=== PATIENT | female | born 1990 | race American Indian/Alaskan Native ===

== ENCOUNTER 2020-06-20 11:00 | Outpatient (CLI) | payer MEDICAID | END 2020-06-20 11:01 | disposition home or self-care (01) | LOC: SLR 11:00 | PROVIDERS: ATTEND Otolaryngology | DX: G47.33 Obstructive sleep apnea (adult) (pediatric) (principal); R40.0 Somnolence; E66.9 Obesity, unspecified | CPT/HCPCS: G0399 ==

== ENCOUNTER 2020-10-15 06:35 | Day surgery (SDC) | payer MEDICAID ==
[2020-10-15] MEDS ORDERED: SODIUM CHLORIDE 0.9% 1000 ML 1,000 ML IV SCH (07:00)
--- NOTE | 2020-10-15 07:32 | Anesthesia Consultation ---
Anesthesia Consult and Med Hx Date of service: 10/15/20 - Airway Anesthetic Teeth Evaluation: Good ROM Head & Neck: Adequate Mental/Hyoid Distance: Adequate Mallampati Class: Class III Intubation Access Assessment: Possibly Difficult - Pre-Operative Health Status ASA Pre-Surgery Classification: ASA3 Proposed Anesthetic Plan: MAC - Pulmonary Hx Smoking: Yes (cigars) Hx Sleep Apnea: Yes (uses CPAP) - Cardiovascular System Hx Hypertension: Yes (no meds) - Central Nervous System Hx Psychiatric Problems: Yes (anxiety) - Gastrointestinal Hx Gastroesophageal Reflux Disease: Yes - Endocrine Hx Hypothyroidism: Yes (no meds) - Other Systems Hx Substance Use: Yes (marijuana) Hx Obesity: Yes (BMI 63.9)
--- NOTE | 2020-10-15 07:33 | Anesthesia Day of Surgery ---
Anesthesia Day of Surgery - Day of Surgery Patient Examined: Yes Patient H&P Reviewed: Yes Patient is NPO: Yes
--- NOTE | 2020-10-15 08:29 | Discharge Summary ---
Providers - Providers Date of Admission: 10/15/2020 Date of discharge: 10/15/20 Attending physician: GINNA MERCADO MD [facility] ROSALIND Hospitalization Reason for admission: EGD as part of pre-op planning for bariatric surgery Condition: Good Procedures: EGD Hospital course: Pt presented for a pre-op EGD as part of planning for up coming bariatric surgery. Procedure was uneventful and pt recovered well and was discharged to home. Disposition: DC-01 TO HOME OR SELFCARE Core Measure Documentation - Palliative Care Palliative Care/ Comfort Measures: Not Applicable - Core Measures Any of the following diagnoses?: none Exam - Physical Exam Narrative exam: unchanged from pre-op - Constitutional Vitals: Temp Pulse Resp BP Pulse Ox 97.7 F 68 12 136/89 98 10/15/20 08:07 10/15/20 08:07 10/15/20 08:07 10/15/20 08:07 10/15/20 08:07 Plan Activity: no restrictions Diet: low carbohydrate Follow up with: JOSÉ ANTONIO CARRILLO MD [Primary Care Provider] - 7 Days
--- NOTE | 2020-10-15 08:30 | Operative Report ---
Operative Report Operative Report: DATE: 10/15/2020 SURGERY: Upper endoscopy. SURGEON: Tacho Mart M.D. PROCEDURE: EGD with biopsy PRE OP DX: morbid obesity, GERD POST OP DX: morbid obesity, GERD TYPE OF ANESTHESIA: MAC. ESTIMATED BLOOD LOSS: None. COMPLICATIONS: None. SPECIMENS REMOVED: antral biopsy FINDINGS: 1. Small hiatal hernia. 2. antral gastritis 2. Otherwise, normal esophagus and first portion of duodenum. INDICATIONS:INDICATION FOR PROCEDURE: Patient is a 29-year-old female with a long history of morbid obesity. She is planned to have a weight loss procedure and is here for preoperative planning EGD. PROCEDURE DETAILS: After consent was reviewed, patient was taken back to the operating room where patient was placed in the left lateral decubitus position and a bite block was placed in the mouth. After a time-out was called, MAC anesthesia was initiated. I then passed the endoscope into her oropharynx, into her esophagus, visualized the entire esophagus, which was all within normal limits. Z-line was noted to about 40cm from incisors. I then visualized the stomach and the first portion of the duodenum and there were no abnormalities I could clearly visualize. A cold forceps biopsy of the antrum was taken and will be sent to pathology to evaluate for H.pylori. I then retroflexed the scope in the stomach and visualized the hiatus and I could see a small hiatal hernia. I then desufflated the stomach and removed the endoscope. Patient tolerated procedure well and was transferred to recovery room in good and stable condition.
[2020-10-15] MEDS ORDERED: LIDOCAINE MPF (2%) 20 MG/1 ML VIAL 5 ML ONE (08:31)
[2020-10-15] MEDS ORDERED: propofoL 200 MG/20 ML VIAL IV ONE (08:31)
[2020-10-15] MEDS ORDERED: SODIUM CHLORIDE 0.9% 1000 ML IV SOLN IV ONE (08:36)
--- NOTE | 2020-10-15 09:02 | Post Anesthesia Evaluation ---
- Post Anesthesia Evaluation Patient Participated: Yes Airway Patent: Yes Stable Respiratory Function: Yes Nausea/Vomiting: No Temp > 96.8F: Yes Pain Manageable: Yes Adequeate Hydration: Yes Anesthesia Complications: No Block Receding Appropriately: Not Applicable Patient on Ventilator: No
[2020-10-15 09:34] VITALS: BP 124/89
== END 2020-10-15 06:36 | disposition home or self-care (01) ==
LOC: GIO 06:35
PROVIDERS: ATTEND Surgery
DX: K21.9 Gastro-esophageal reflux disease without esophagitis (principal); E66.01 Morbid (severe) obesity due to excess calories; K44.9 Diaphragmatic hernia without obstruction or gangrene; K29.70 Gastritis, unspecified, without bleeding; F17.210 Nicotine dependence, cigarettes, uncomplicated; I10 Essential (primary) hypertension; G47.30 Sleep apnea, unspecified; E03.9 Hypothyroidism, unspecified; F41.9 Anxiety disorder, unspecified; Z79.899 Other long term (current) drug therapy; Z68.44 Body mass index [BMI] 60.0-69.9, adult
CPT/HCPCS: 43239; 88305; J2704; J7030

== ENCOUNTER 2021-01-06 07:32 | Inpatient (IN) | payer MEDICAID ==
[2020-12-31 10:58] LABS: Hemoglobin 12.7 gm/dl (10.1-14.3); Mean Corpuscular HGB Conc 33 % (30-34); Platelet Count 260 K/mm3 (140-440); Red Blood Count 5.45 M/mm3 (3.65-5.03); Red Cell Distribution Width 16.2 % (13.2-15.2)
[2020-12-31 11:08] LABS: Mean Corpuscular Volume 70 fl (79-97)
[2020-12-31 11:18] LABS: Alanine Aminotransferase 16 units/L (7-56); Albumin 4.1 g/dL (3.9-5); Blood Urea Nitrogen 15 mg/dL (7-17); Hemolysis Index 1
[2020-12-31 11:40] LABS: BUN/Creatinine Ratio 30
--- NOTE | 2020-12-31 15:57 | Anesthesia Consultation ---
Anesthesia Consult and Med Hx Date of service: 12/31/20 - Airway Anesthetic Teeth Evaluation: Good ROM Head & Neck: Adequate Mental/Hyoid Distance: Adequate Mallampati Class: Class II Intubation Access Assessment: Probably Good - Pulmonary Exam CTA: Yes - Cardiac Exam Cardiac Exam: RRR - Pre-Operative Health Status ASA Pre-Surgery Classification: ASA3 Proposed Anesthetic Plan: General - Pulmonary Hx Smoking: Yes (former smoker quit 10/18/20) Hx Respiratory Symptoms: No (normal PFTs) Hx Sleep Apnea: Yes (moderate; compliant with CPAP) - Cardiovascular System Hx Hypertension: Yes (prior hx off meds several yrs) Hx Heart Attack/AMI: No Hx Percutaneous Transluminal Coronary Angioplasty (PTCA): No Hx Cardia Arrhythmia: No - Central Nervous System CVA: No - Endocrine Hx Renal Disease: No Hx Liver Disease: No Hx Insulin Dependent Diabetes: No Hx Non-Insulin Dependent Diabetes: No Hx Thyroid Disease: No (hx thyroid disease now resolved) - Other Systems Hx Substance Use: Yes (THC) Hx Obesity: Yes (BMI 55) - Additional Comments Anesthesia Medical History Comments: No hx anesthetic complications. Hypertensive at preassessment visit which patient believes is associated with recent of her mother and stress of planning services while also preparing for surgery. Has BP cuff at home and will monitor. Pulmonary, cardiac, and medical evaluation on chart.
[~2021-01-06 07:32] MED LIST: ACETAMINOPHEN 325 MG/10.15 ML ORAL LIQD UNIT DOSE PO NR; ENOXAPARIN 40 MG/0.4 ML INJ SUB-Q NR; GABAPENTIN 500 MG/10 ML ORAL LIQD PO NR; LACTATED RINGERS 1,000 ML IV SCH; SCOPOLAMINE TRANSDERMAL PATCH 72 HR TD NR; ceFAZolin/Water 2 GM/20 ML 2 GM/20 ML SYRINGE IV NR; metroNIDAZOLE/NS 500 MG/100 ML 500 MG/100 ML BAG IV NR
--- NOTE | 2021-01-06 07:51 | Anesthesia Day of Surgery ---
Anesthesia Day of Surgery - Day of Surgery Patient Examined: Yes Patient H&P Reviewed: Yes Patient is NPO: Yes
--- OUTSIDE RECORDS SUMMARY | 2021-01-06 08:15 | External Medical Summary ---
:1990 Author Organization [facility], [facility] Address [address] [place] [address] Care Team Providers Name Role Phone Tacho Mart Unavailable [phone] PROBLEMS Type Condition ICD9-CM [id number] Onset Condition W/U Status Risk SNOM ED Notes Code Code Dates Status Code Problem Anxiety F41.9 Active confirmed 680348993 disorder, unspecified Problem Sleep G47.9 Active confirmed 88957995 disorder, unspecified Problem Sleep apnea, G47.30 Active confirmed 5830052 6 unspecified Problem Morbid E66.01 Active confirmed 033550023 (severe) obesity due to excess calories Problem Body mass Z68.44 Active confirmed 581332693 index (BMI) 60.0-69.9, adult Problem Gastro-esopha K21.9 Active confirmed 953806 005 geal reflux disease without esophagitis Problem Essential I10 Active confirmed 62655920 (primary) hypertension ALLERGIES No Known Allergies ENCOUNTERS from 1989 to 2021-01-03 Encounter Location Date Provider Diagnosis [facility] Dec, Tacho Mart Morbi d (severe) Rd [facility] Level obesity due to excess of [place], [place] calorie s E66.01 ; [address] Essential (prim nirmal) hypertension I1 0 ; Gastro-esophage al reflux disease without esophagitis K21 .9 and Sleep apnea, unspecified G47 .30 IMMUNIZATIONS No Information SOCIAL HISTORY Sex Assigned At : Social History Observation Description Sex Assigned At Unknown REASON FOR REFERRAL from 1989 to 2021-01-03 Diagnosis 1 Gastro-esophageal reflux dis ease without esophagitis (K21.9) Diagnosis 2 Morbid (severe) obesity due to excess calories (E66.01) Diagnosis 3 Essential (primary) hyperten adrienne (I10) Diagnosis 4 Anxiety disorder, unspecifie d (F41.9) Diagnosis 5 Body mass index (BMI) 60.0-6 9.9, adult (Z68.44) Diagnosis 6 Sleep disorder, unspecified (G47.9) Diagnosis 7 Sleep apnea, unspecified (G4 7.30) Referral Organization [facility] Referring Provider First Name Tierneyluis Referring Provider Last Name Barron Referring Provider Specialty Surgery Referred Provider [facility], - Referral Priority Routine VITAL SIGNS Height 65 in Dec, Weight 334.7 lbs Dec, Temperature 97.8 degrees Fahrenheit Dec, BMI 55.69 kg/m2 Dec, Blood pressure systolic 139 mm Hg Dec, Blood pressure diastolic 90 mm Hg Dec, MEDICATIONS Medication SIG (Take, Route, Notes Start Date End Date Status Frequency, Duration) Albuterol Sulfate 1.25 3 ml as needed Active MG/3ML Inhalation every 8 hrs Nexium 24HR 20 MG 1 capsule Orally Once a Active day for 30 day(s) Nexium 40 MG 1 capsule Orally Once a Dec, Active day for 30 day(s) Hydrocodone-Acetaminoph 15 ml as needed Orally Dec,Dec, Active en 7.5-325 MG/15ML every 6 hrs for 7 days Zofran 4 MG 1-2 tablet Orally q 4-6 Dec, Active hours prn nausea for 30 day(s) PROCEDURES No Information RESULTS No Results REASON FOR VISIT PreOp Sleeve MEDICAL (GENERAL) HISTORY Type Description Date Medical History Morbid (severe) obesity due to excess ca lories Medical History Essential (primary) hypertension Medical History Gastro-esophageal reflux disease without esophagitis Medical History Body mass index (BMI) 60.0-69.9, adult Medical History Anxiety disorder, unspecified Surgical History 01/19/2007 Surgical History C- Section 08/28/2008 Surgical History 05/07/2012 Surgical History Tubal Ligation 06/23/2012 Goals Section No Information Health Concerns No Information MEDICAL EQUIPMENT No Information MENTAL STATUS No Information FUNCTIONAL STATUS No Information ASSESSMENTS Encounter Date Diagnosis Assessment Notes Treatment Notes Treatm ent Clinical Notes Dec, Morbid (severe) An hour was spent obesity due to with patient excess calories reinforcing diet, (ICD-10 - E66.01) vitamin requirements and lifestyle education, A quiz was administered and reviewed to verify understanding of intended procedure and post operative care. Consent forms were reviewed with patient and signed answering all questions, Pre-operative labs were ordered. Dec, Essential (primary) Should resolve or hypertension greatly improve (ICD-10 - I10) with weight loss after bariatric surgery Dec, Gastro-esophageal Will continue reflux disease medication. EGD to without esophagitis evaluate for any (ICD-10 - K21.9) pathology due to or exacerbating reflux. Should improve with weight loss surgery. Dec, Sleep apnea, Continue use of unspecified (ICD-10 CPAP machine, - G47.30) should resolve or greatly improve after weight loss surgery, and will titrate CPAP machine as tolerated. PLAN OF TREATMENT Medication Medication Name Sig Start Date Stop Date Nexium 40 MG 1 capsule Orally Once a day Dec, for 30 day(s) Hydrocodone-Acetaminophen 15 ml as needed Orally every 12 Dec, 2 021 19 Dec, 2020 7.5-325 MG/15ML 6 hrs for 7 days Zofran 4 MG 1-2 tablet Orally q 4-6 Dec, hours prn nausea for 30 day(s) Treatment Notes Assessment Notes Clinical Notes Morbid (severe) obesity due to An hour was spent with patien t excess calories reinforcing diet, vitamin requirements and lifestyle education, A quiz was administered and reviewed to verify understanding of intended procedure and post operative care. Consent forms were reviewed with patient and signed answering all questions, Pre-operative labs were ordered. Essential (primary) hypertension Should resolve or greatly i mprove with weight loss after bariatric surgery Gastro-esophageal reflux disease Will continue medication. E GD to without esophagitis evaluate for any pathology due to or exacerbating reflux. Should improve with weight loss surgery. Sleep apnea, unspecified Continue use of CPAP machine, should resolve or greatly improve after weight loss surgery, and will titrate CPAP machine as tolerated. Referrals Referral Date Details Next Appt Details at surger;y - sleeve gastrectomy Reason: Provider Name:Tacho Mart, 2020-12-17 2 10:30:00 AM, [address] [place], [place], [address], Insurance Providers Payer Name Payer Address Payer Insured Name Patient Coverage Co verage End Phone Relationship to Start Date [place] e Insured [employer] [address] [address] [phone] Josiane Dodson /LEX [address] [address]
[2021-01-06] MEDS ORDERED: SCOPOLAMINE TRANSDERMAL PATCH 72 HR TD SCH (10:00)
[2021-01-06] MEDS ORDERED: MIDAZOLAM 2 MG/2 ML INJ IV NR (10:00)
[2021-01-06] MEDS ORDERED: BUPIVACAINE/PF (0.25%) 2.5 MG/ML 30 ML VIAL INFILTRATI ONE ×2 (10:28→12:35)
[2021-01-06] MEDS ORDERED: LIDOCAINE 1%/EPINEPHRINE 1:100,000 VIAL (20 ML) INFILTRATI ONE ×3 (10:28→12:35)
[2021-01-06] MEDS ORDERED: MAGNESIUM SULFATE 2 GM/50 ML BAG IV ONE (10:29)
[2021-01-06] MEDS ORDERED: dexAMETHasone 20 MG/5 ML VIAL ONE (10:38)
[2021-01-06] MEDS ORDERED: ONDANSETRON 4 MG/2 ML INJ ONE (10:38)
[2021-01-06] MEDS ORDERED: KETOROLAC 30 MG/1 ML INJ ONE (10:38)
[2021-01-06] MEDS ORDERED: KETAMINE/STERILE WATER 50 MG/ML SYRINGE ONE ×2 (10:39)
[2021-01-06] MEDS ORDERED: ROCURONIUM 50 MG/5 ML INJ IV ONE (10:40)
[2021-01-06] MEDS ORDERED: SODIUM CHLORIDE P/F VIAL 10 ML 10 ML ONE (10:44)
[2021-01-06] MEDS ORDERED: SODIUM CHLORIDE 0.9% IRR 1,500 ML BOTTLE IR ONE (12:35)
[2021-01-06] MEDS ORDERED: propofoL 200 MG/20 ML VIAL IV ONE (12:47)
[2021-01-06] MEDS ORDERED: SUGAMMADEX SODIUM 200 MG/2 ML VIAL IV ONE (13:02)
[2021-01-06] MEDS ORDERED: ONDANSETRON 4 MG/2 ML INJ IV PRN (13:38)
[2021-01-06] MEDS ORDERED: METOCLOPRAMIDE 10 MG/2 ML INJ IV PRN (13:38)
[2021-01-06] MEDS ORDERED: HYDROcodone/Acetaminophen 7.5-325MG-15ML ORAL LIQD PO PRN (13:38)
[2021-01-06] MEDS ORDERED: hydrALAZINE 20 MG/1 ML INJ IV PRN (13:38)
--- NOTE | 2021-01-06 13:44 | Operative Report ---
Operative Report Operative Report: DATE:01/06/2021 Surgeon: Tacho Mart MD Planting Material Remover surgeon: Cheryl Donohue CSA MD Pre-op Dx: morbid obesity Post-op Dx: morbid obesity Procedure: 1. laparoscopic sleeve gastrectomy, 2. hiatal hernia repair Anesthesia: GETA and TAP block EBL: <10ml Specimen: gastric remnant Complication: none immediate Indication: 30 year old female with a history of morbid obesity . Pt is here for sleeve gastrectomy for weight loss to achieve healthier weight and improve or resolve his co-morbidities. She expressed understanding of the risks and benefits. PROCEDURE IN DETAIL: After consent was reviewed, patient was taken back to the operating room, where patient was placed supine on the bed with both arms out. The patient's legs were doubly strapped to the bed. Patient had a foot board in place. Patient had a body warmer placed by anesthesia. General anesthesia was induced with successful endotracheal intubation. Patient was then prepped and draped in normal sterile surgical fashion. After a time-out was called, I made a stab incision in the left subcostal area and placed a Veress needle through this incision and insufflated the abdomen to 18 mmHg pressure. I then counted down a handsbreadth below the xiphoid process in the midline and slightly left lateral injected local anesthetic and made about 1 cm transverse incision. I then used a 5-mm Optiview trocar to enter into the abdomen. There was no gross injury to any intra-abdominal structures. I then placed a 30-degree scope through this port and inspected the abdomen. I then placed a 8-mm port in the right upper quadrant, and 1 5mm in the epigastric area below the costovertebral angle. I then placed a 15-mm port about a handsbreadth in the right mid abdomen. After which a 5mm port was placed in left upper quadrant port along the anterior axillary line in a similar fashion. A liver retractor was placed to the epigastric port to elevate the left lateral lobe and liver. There was a small hiatal hernia appreciated that was accentuated with 360 degree crural dissection. Hiatal hernia sac was dissected from the crura until the GE junction was resting about 2cm below the level of the diaphragm without tension. Anterior and posterior crura-plasties were preformed via U-stitches using surgidac suture. The anterior gastric fat pad was excised. Starting approximately 6 cm proximal to the pylorus, using a LigaSure device the short gastrics were taken all the way to the left pastor. Once the lateral portion of the stomach was mobile anesthesia passed a 40 Micronesian bougie along the medial aspect to act as a stent. Using serial firings of endoscopic stapler to gold, followed by 4 blue, the lateral portion of the stomach was transected making sure to did not close to the 2 cm to the incisura. All staple loads were supported with jimmy-strip buttress. The sleeve stomach was seen to be without kink obstruction or twistin g. The pressure was decreased to 10 mmHg. The staple line was inspected for approximately 5 minutes. There was no significant bleeding appreciated except for a slight loose at the most distal portion of the staple line. Bleeding was minimal and easily controlled with minimal cautery. Tisseel was then sprayed along the entirety of the staple line. The liver retractor was removed. A TAP block was performed with 60ml of 0.25% marcaine along bilateral mid axillary lines starting from the subcostal region to just below the level of the umbilicus This was after the gastric remnant was grasped and pulled into the 15 mm trocar site. The stomach was extracted via the 15 mm trocar site. After the fascia had to be stretched with a Marielle clamp to easily remove the stomach, the fascia was closed using a demarcus neftali device at the level of the fascia with an 0 PDS. trocars were removed under direct visualization. All skin incisions were closed with 4-0 Monocryl followed by Dermabond. Patient was awoken, extubated, and taken to recovery stable condition. All counts were correct.
[2021-01-06] MEDS: MORPHINE 2 MG/1 ML INJ IV PRN ×2 (15:53→23:16)
[2021-01-06] MEDS: KETOROLAC 30 MG/1 ML INJ IV SCH ×2 (16:00→21:04)
--- NOTE | 2021-01-06 16:34 | Post Anesthesia Evaluation ---
- Post Anesthesia Evaluation Patient Participated: Yes Airway Patent: Yes Stable Respiratory Function: Yes Nausea/Vomiting: No Temp > 96.8F: Yes Pain Manageable: Yes Adequeate Hydration: Yes Anesthesia Complications: No
[2021-01-06] MEDS: metroNIDAZOLE/NS 500 MG/100 ML 500 MG/100 ML BAG IV SCH (17:26)
[2021-01-06] MEDS: SIMETHICONE 80 MG CHEW TAB PO PRN (22:53)
[2021-01-06] MEDS: ceFAZolin/NS 1 GM/50 ML 1 GM/50 ML BAG IV SCH (23:00)
[2021-01-07] MEDS: ceFAZolin/NS 1 GM/50 ML 1 GM/50 ML BAG IV SCH ×2 (01:40→05:54)
[2021-01-07] MEDS: metroNIDAZOLE/NS 500 MG/100 ML 500 MG/100 ML BAG IV SCH ×2 (01:40→08:17)
[2021-01-07] MEDS: KETOROLAC 30 MG/1 ML INJ IV SCH ×4 (01:48→20:42)
[2021-01-07 05:30] LABS: Basophils % (Auto) 0.1 % (0.0-1.8); Hematocrit 34.6 % (30.3-42.9); Hemoglobin 11.3 gm/dl (10.1-14.3); Lymphocytes # (Auto) 0.9 K/mm3 (1.2-5.4); Lymphocytes % (Auto) 12.1 % (13.4-35.0); Mean Corpuscular HGB Conc 33 % (30-34); Mean Corpuscular Volume 71 fl (79-97); Monocytes # (Auto) 0.8 K/mm3 (0.0-0.8); Monocytes % (Auto) 10.7 % (0.0-7.3); Platelet Count 194 K/mm3 (140-440); Red Blood Count 4.91 M/mm3 (3.65-5.03); Red Cell Distribution Width 16.6 % (13.2-15.2)
[2021-01-07 06:31] LABS: Alanine Aminotransferase 19 units/L (7-56); Albumin 3.6 g/dL (3.9-5); Blood Urea Nitrogen 9 mg/dL (7-17); Calcium 8.6 mg/dL (8.4-10.2); Hemolysis Index 6
[2021-01-07 06:33] LABS: BUN/Creatinine Ratio 15
--- NOTE | 2021-01-07 09:23 | Progress Note ---
Assessment and Plan POd#1 s/p lap gastric sleeve with hiatal hernia repair. Afebrile and stable. Showing no clinical signs of leak or bleeding. will encourage PO clear liquids and frequent ambulation. Chest discomfort likely due to extensive hiatal hernia repair. If proves to get adequate oral intake may be able to discharge today. Subjective Date of service: 01/07/21 Narrative: no acute events. Pt complains of a discomfort in the center of her chest when she drinks or takes a deep breath. Denies n/v but is only able to take a very small amount of PO liquids at a time. Pain is controlled. Objective Vital Signs - 12hr 01/06/21 01/06/21 01/07/21 23:13 23:30 04:47 Temperature 98.6 F 98.1 F Pulse Rate 54 L 65 51 L Respiratory 18 18 18 Rate Blood Pressure 142/80 134/74 O2 Sat by Pulse 99 97 97 Oximetry 01/07/21 07:03 Temperature 98.3 F Pulse Rate 50 L Respiratory 18 Rate Blood Pressure 139/78 O2 Sat by Pulse 97 Oximetry - General physical appearance well developed, no distress, no pain - Respiratory normal expansion, normal respiratory effort - Abdomen soft, other (incisions c/d/i, appropriately tender to palpation) - Labs 01/07/21 04:22 01/07/21 04:22 Diabetes panel 01/07/21 Range/Units 04:22 Sodium 137 (137-145) mmol/L Potassium 4.1 (3.6-5.0) mmol/L Chloride 103.3 (98-107) mmol/L Carbon Dioxide 25 (22-30) mmol/L BUN 9 (7-17) mg/dL Creatinine 0.6 (0.6-1.2) mg/dL Glucose 101 H (65-100) mg/dL Calcium 8.6 (8.4-10.2) mg/dL AST 22 (5-40) units/L ALT 19 (7-56) units/L Alkaline Phosphatase 46 (35-129) units/L Total Protein 6.8 (6.3-8.2) g/dL Albumin 3.6 L (3.9-5) g/dL Calcium panel 01/07/21 Range/Units 04:22 Calcium 8.6 (8.4-10.2) mg/dL Albumin 3.6 L (3.9-5) g/dL Pituitary panel 01/07/21 Range/Units 04:22 Sodium 137 (137-145) mmol/L Potassium 4.1 (3.6-5.0) mmol/L Chloride 103.3 (98-107) mmol/L Carbon Dioxide 25 (22-30) mmol/L BUN 9 (7-17) mg/dL Creatinine 0.6 (0.6-1.2) mg/dL Glucose 101 H (65-100) mg/dL Calcium 8.6 (8.4-10.2) mg/dL Adrenal panel 01/07/21 Range/Units 04:22 Sodium 137 (137-145) mmol/L Potassium 4.1 (3.6-5.0) mmol/L Chloride 103.3 (98-107) mmol/L Carbon Dioxide 25 (22-30) mmol/L BUN 9 (7-17) mg/dL Creatinine 0.6 (0.6-1.2) mg/dL Glucose 101 H (65-100) mg/dL Calcium 8.6 (8.4-10.2) mg/dL Total Bilirubin 0.30 (0.1-1.2) mg/dL AST 22 (5-40) units/L ALT 19 (7-56) units/L Alkaline Phosphatase 46 (35-129) units/L Total Protein 6.8 (6.3-8.2) g/dL Albumin 3.6 L (3.9-5) g/dL
[2021-01-07] MEDS: ENOXAPARIN 40 MG/0.4 ML INJ SUB-Q SCH (11:52)
[2021-01-07] MEDS: SIMETHICONE 80 MG CHEW TAB PO PRN (12:02)
--- NOTE | 2021-01-07 14:54 | Post Anesthesia Evaluation ---
- Post Anesthesia Evaluation Patient Participated: Yes Airway Patent: Yes Stable Respiratory Function: Yes Nausea/Vomiting: No Pain Manageable: Yes Anesthesia Complications: No Block Receding Appropriately: Not Applicable Patient on Ventilator: No Other Comments: Pt A+O x 3. No distress noted. Denies pain. resting comfortable in bed.
[2021-01-07] MEDS: LACTATED RINGERS 1,000 ML IV SCH (18:38)
[2021-01-07] MEDS: MORPHINE 2 MG/1 ML INJ IV PRN (20:50)
[2021-01-08] MEDS: MORPHINE 2 MG/1 ML INJ IV PRN (02:14)
[2021-01-08] MEDS: KETOROLAC 30 MG/1 ML INJ IV SCH ×2 (02:14→10:15)
[2021-01-08 05:14] LABS: Basophils % (Auto) 0.5 % (0.0-1.8); Eosinophils % (Auto) 0.1 % (0.0-4.3); Hematocrit 32.8 % (30.3-42.9); Hemoglobin 10.7 gm/dl (10.1-14.3); Lymphocytes # (Auto) 2.5 K/mm3 (1.2-5.4); Lymphocytes % (Auto) 36.9 % (13.4-35.0); Mean Corpuscular HGB Conc 33 % (30-34); Mean Corpuscular Volume 70 fl (79-97); Monocytes # (Auto) 0.7 K/mm3 (0.0-0.8); Monocytes % (Auto) 9.9 % (0.0-7.3); Platelet Count 189 K/mm3 (140-440); Red Blood Count 4.68 M/mm3 (3.65-5.03); Red Cell Distribution Width 16.2 % (13.2-15.2)
[2021-01-08 05:29] LABS: Alanine Aminotransferase 15 units/L (7-56); Albumin 3.4 g/dL (3.9-5); Blood Urea Nitrogen 13 mg/dL (7-17); Calcium 8.1 mg/dL (8.4-10.2); Hemolysis Index 2
[2021-01-08 05:33] LABS: BUN/Creatinine Ratio 22
[2021-01-08] MEDS: LACTATED RINGERS 1,000 ML IV SCH (06:12)
[2021-01-08] MEDS: ENOXAPARIN 40 MG/0.4 ML INJ SUB-Q SCH (10:14)
[2021-01-08 11:59] VITALS: BP 127/91
--- NOTE | 2021-01-08 12:37 | Discharge Summary ---
Providers - Providers Date of Admission: 01/06/21 07:32 Date of discharge: 01/08/21 Attending physician: GINNA MERCADO MD 01/06/21 13:38 Physical Therapy Evaluation and Treat [CONS] Routine Comment: Reason For Exam: post op bariatric Primary care physician: JOSÉ ANTONIO BOYER MD Hospitalization Reason for admission: s/p lap gastric sleeve with hiatal hernia repair Condition: Good Procedures: lap sleeve gastrectomy with hiatal hernia repair Hospital course: Pt was admitted after an uneventful lap gastric sleeve with hiatal hernia repair. She maintained stable vitals, labs, and was afebrile but had difficulty getting adequate oral intake by the end of POD#1 due to pain with drinking. By post op day 2 she was tolerating liquids better and ambulating without difficulty. she showed no clinical signs of leak or bleeding upon discharge. she will return to the office for post op appointment in two weeks. Disposition: DC- TO HOME OR SELFCARE Final Discharge Diagnosis (Prints w/discharge instructions): morbid obesity, gerd Core Measure Documentation - Palliative Care Palliative Care/ Comfort Measures: Not Applicable - Core Measures Any of the following diagnoses?: none Exam - Constitutional Vitals: Temp Pulse Resp BP Pulse Ox 98.1 F 72 20 127/91 96 01/08/21 11:00 01/08/21 11:00 01/08/21 11:00 01/08/21 11:00 01/08/21 11:00 General appearance: Present: no acute distress - Respiratory Respiratory effort: normal - Cardiovascular Heart Sounds: Present: S1 & S2 - Extremities Extremities: no ischemia - Abdominal General gastrointestinal: Present: soft, non-distended, other (incisions c/d/i, appropriately tender to palpation) Plan Activity: advance as tolerated Diet: clear liquids Wound: open to air, keep clean and dry Follow up with: JOSÉ ANTONIO CARRILLO MD [Primary Care Provider] - 7 Days
== END 2021-01-08 16:10 | disposition home or self-care (01) | DRG 621 ==
LOC: 3A 07:32 → 3B-SURG 14:22
PROVIDERS: ADMIT Surgery; ATTEND Surgery
PROC: 0DB64Z3 Excision of Stomach, Percutaneous Endoscopic Approach, Vertical (ICD-10-PCS; principal; 2021-01-06)
PROC: 0BQT4ZZ Repair Diaphragm, Percutaneous Endoscopic Approach (ICD-10-PCS; 2021-01-06)
DX: E66.01 Morbid (severe) obesity due to excess calories (principal); K44.9 Diaphragmatic hernia without obstruction or gangrene; Z68.43 Body mass index [BMI] 50.0-59.9, adult; Z20.822 Contact with and (suspected) exposure to COVID-19; K21.9 Gastro-esophageal reflux disease without esophagitis; Z87.891 Personal history of nicotine dependence
CPT/HCPCS: 36415; 80053; 84703; 85025; 85027; 88307; G0378; C9250; J0690; J1100; J1650; J1885; J2250; J2270; J2405; J2704; J3475; J3490; J7120; U0003